=== PATIENT | male | born 1970 | race Asian ===

== ENCOUNTER 2018-11-17 21:34 | Emergency (ER) | payer OTHER ==
[2018-11-18] MEDS: DIPHTH/TET/ACEL PERTUSS (ADULT) 0.5 ML VIAL IM* (01:22)
== END 2018-11-18 04:10 | disposition home or self-care (01) ==
LOC: FTE 21:34
DX: S61.210A Laceration without foreign body of right index finger without damage to nail, initial encounter (principal); S61.212A Laceration without foreign body of right middle finger without damage to nail, initial encounter; S61.216A Laceration without foreign body of right little finger without damage to nail, initial encounter; I10 Essential (primary) hypertension; E11.9 Type 2 diabetes mellitus without complications; W22.8XXA Striking against or struck by other objects, initial encounter; Y92.9 Unspecified place or not applicable; Z23 Encounter for immunization
CPT/HCPCS: 12001; 73130-RT; 90471; 90715; 99283-25